=== PATIENT | female | born 1980 | race Caucasian/White ===

== ENCOUNTER 2018-03-20 18:41 | Emergency (ER) | payer MEDICAID ==
[~2018-03-20] VITALS: Ht 167.6 cm; Wt 90.7 kg
[~2018-03-20 18:41] MED LIST: AUGMENTIN 875-1 EACH PO; CIPROFLOXACIN500 M1 PO; FLOMAX PO; FLONASE16 GM; FOLIC ACID PO; HYDROCODON-ACE1 EAC7 PO; KEPPRA 500 MG500 M1 PO; PERCOCET 5-3251 EACH PO; PRENATAL; PRENATAL VIT PO; SERTRALINE HCL50 MG PO; TRAZODONE HCL50 MG PO; VISTARIL 25 MG25 M1 PO; ZOFRAN ODT4 MG PO; ZOFRAN4 MG PO; ZYRTEC10 M2 PO
[2018-03-20] MEDS ORDERED: SEROQUEL 50 MG50 MG PO (18:59)
[2018-03-20] MEDS ORDERED: ACETAMINOPHEN-1 EAC1 PO (20:15)
[2018-03-20 20:24] VITALS: BP 130/70
== END 2018-03-20 20:25 | disposition home or self-care (01) ==
LOC: M.ERS 18:41
DX: S02.2XXA Fracture of nasal bones, initial encounter for closed fracture (principal); W21.07XA Struck by softball, initial encounter; Y93.89 Activity, other specified; Y92.89 Other specified places as the place of occurrence of the external cause; Y99.8 Other external cause status

== ENCOUNTER 2019-06-02 01:08 | Emergency (ER) | payer OTHER ==
[~2019-06-02] VITALS: Ht 167.6 cm; Wt 88.5 kg
[~2019-06-02 01:08] MED LIST changes: +ACETAMINOPHEN-1 EAC1 PO; +SEROQUEL 50 MG50 MG PO
[2019-06-02 01:30] LABS: ABSOLUTE BASOPHILS 0.1 thou/uL (0.0-0.2); ABSOLUTE LYMPHOCYTES 2.2 thou/uL (0.8-5.3); ABSOLUTE MONOCYTES 0.7 thou/uL (0.0-1.2); ABSOLUTE NEUTROPHILS 5.2 thou/uL (1.6-8.1); BASOPHILS 0.6 %; EOSINOPHILS 0.3 %; HEMATOCRIT 40.7 % (37.0-47.0); HEMOGLOBIN 14.3 gm/dL (12.0-15.0); LYMPHOCYTES 27.2 %; MCH 31.5 pg (26.0-34.0); MCHC 35.1 g/dL (28.0-37.0); MCV 89.5 fL (80.0-100.0); MONOCYTES 8.3 %; MPV 10.8 fl. (7.2-11.1); NUCLEATED RBCS 0 /100WBC; PLATELET COUNT* 193 thou/uL (150-400); POLYS 63.6 %; RBC 4.55 mil/uL (4.20-5.00); RDW-CV 13.9 % (10.5-14.5); WBC 8.2 thou/uL (4.0-11.0)
[2019-06-02 01:32] LABS: URINE BILIRUBIN NEGATIVE (Negative); URINE BLOOD TRACE (Negative); URINE CLARITY CLEAR; URINE COLOR YELLOW; URINE GLUCOSE-RANDOM NEGATIVE (Negative); URINE KETONES NEGATIVE (Negative); URINE LEUKOCYTES-REFLEX 1+ (Negative); URINE NITRITE-REFLEX NEGATIVE (Negative); URINE PROTEIN TRACE (Negative); URINE UROBILINOGEN 0.2 E.U./dl (0.2-1.0)
[2019-06-02 01:39] LABS: CALCIUM 9.2 mg/dL (8.5-10.1); CREATININE 0.8 mg/dL (0.6-1.3); POTASSIUM 3.7 mmol/L (3.5-5.1)
[2019-06-02 01:40] LABS: BACTERIA-REFLEX >30 Many /HPF (None Seen); CASTS None Seen /LPF (None Seen); CRYSTALS None Seen /LPF (None Seen); MUCUS 4-6 Moderate strn/LPF (None Seen); SQUAMOUS 4-10 Moderate /LPF (0-3); URINE RBC 3-10 Few /HPF (0-2); URINE WBC-REFLEX 6-15 Few /HPF (0-5)
[2019-06-02 01:44] LABS: TOTAL BILIRUBIN 0.3 mg/dL (<0.1-1.0); TOTAL PROTEIN 7.5 g/dL (6.4-8.2)
[2019-06-02] MEDS ORDERED: HYDROCODON-ACE1 EAC8 PO (02:21)
[2019-06-02] MEDS ORDERED: BACTRIM DS TAB1 EACH PO (02:21)
[2019-06-02] MEDS ORDERED: ZOFRAN ODT4 MG PO (02:22)
[2019-06-02 02:40] VITALS: BP 110/62
== END 2019-06-02 02:42 | disposition home or self-care (01) ==
LOC: M.ERS 01:08
PROVIDERS: Emergency Medicine
DX: N20.0 Calculus of kidney (principal); Z98.51 Tubal ligation status; Z88.5 Allergy status to narcotic agent; Z88.8 Allergy status to other drugs, medicaments and biological substances; Z87.442 Personal history of urinary calculi

== ENCOUNTER 2021-04-03 18:23 | Inpatient (IN) | payer OTHER ==
[~2021-04-03] VITALS: Ht 167.6 cm; Wt 95.7 kg
[~2021-04-03 18:23] MED LIST changes: +BACTRIM DS TAB1 EACH PO; +HYDROCODON-ACE1 EAC8 PO
[2021-04-03 18:35] VITALS: BP 126/69
[2021-04-03] MEDS ORDERED: PROTONIX 20 MG20 MG PO (18:40)
[2021-04-03 18:53] LABS: BE -0.4 mmol/L (-2 to +3); PCO2 33.8 mmHg (35.0-45.0); PO2 95.1 mmHg (75.0-100.0)
[2021-04-03 19:07] LABS: ABSOLUTE LYMPHOCYTES 0.5 thou/uL (0.8-5.3); ABSOLUTE MONOCYTES 0.3 thou/uL (0.0-1.2); ABSOLUTE NEUTROPHILS 3.3 thou/uL (1.6-8.1); BASOPHILS 0.4 %; HEMATOCRIT 38.9 % (37.0-47.0); HEMOGLOBIN 13.1 gm/dL (12.0-15.0); LYMPHOCYTES 13.2 %; MCH 28.7 pg (26.0-34.0); MCHC 33.6 g/dL (28.0-37.0); MCV 85.3 fL (80.0-100.0); MONOCYTES 6.8 %; MPV 9.7 fl. (7.2-11.1); NUCLEATED RBCS 0 /100WBC; PLATELET COUNT* 125 thou/uL (150-400); POLYS 79.6 %; RBC 4.56 mil/uL (4.20-5.00); RDW-CV 15.6 % (10.5-14.5); WBC 4.2 thou/uL (4.0-11.0)
[2021-04-03 19:23] LABS: CALCIUM 8.2 mg/dL (8.5-10.1); CREATININE 0.7 mg/dL (0.6-1.3); POTASSIUM 3.5 mmol/L (3.5-5.1)
[2021-04-03 19:27] LABS: ALBUMIN 3.6 g/dL (3.4-5.0); TOTAL BILIRUBIN 0.6 mg/dL (<0.1-1.0); TOTAL PROTEIN 7.1 g/dL (6.4-8.2)
[2021-04-03] MEDS ORDERED: SEROQUEL 50 MG50 M1 PO (22:34)
[2021-04-03 23:34] VITALS: BP 119/63
[2021-04-04 03:05] VITALS: BP 92/53
[2021-04-04 07:32] VITALS: BP 103/60
[2021-04-04 09:52] LABS: HEMATOCRIT 37.8 % (37.0-47.0); HEMOGLOBIN 12.6 gm/dL (12.0-15.0); MCH 28.6 pg (26.0-34.0); MCHC 33.3 g/dL (28.0-37.0); MCV 85.8 fL (80.0-100.0); MPV 9.7 fl. (7.2-11.1); RBC 4.41 mil/uL (4.20-5.00); RDW-CV 15.5 % (10.5-14.5); WBC 2.8 thou/uL (4.0-11.0)
[2021-04-04 09:59] LABS: CALCIUM 7.8 mg/dL (8.5-10.1); CREATININE 0.7 mg/dL (0.6-1.3); POTASSIUM 3.7 mmol/L (3.5-5.1)
[2021-04-04 12:45] VITALS: BP 106/64
[2021-04-04 18:05] VITALS: BP 120/69
[2021-04-04 22:00] VITALS: BP 115/66
--- NOTE | 2021-04-04 22:24 | NUR ---
PROVIDER PAGED REGARDING PTS HOME MEDS. PT STATES SHE TAKE SEROQUEL AT BEDTIME AND IS NEEDING 150MG INSTEAD OF 50MG.
[2021-04-05] VITALS (7 sets, daily range): BP systolic 102–122; BP diastolic 49–66
[2021-04-05] MEDS ORDERED: CETIRIZINE HCL5 MG PO (02:10)
[2021-04-05] MEDS ORDERED: VITAMIN B-121000 MC2 PO (02:12)
[2021-04-05] MEDS ORDERED: VITAMIN D31250 MC1 PO (02:13)
[2021-04-05] MEDS ORDERED: SUPER THERAVIT1 EACH PO (02:14)
[2021-04-05 04:31] LABS: HEMATOCRIT 34.8 % (37.0-47.0); HEMOGLOBIN 11.7 gm/dL (12.0-15.0); MCH 28.8 pg (26.0-34.0); MCHC 33.7 g/dL (28.0-37.0); MCV 85.5 fL (80.0-100.0); MPV 9.8 fl. (7.2-11.1); RBC 4.07 mil/uL (4.20-5.00); RDW-CV 15.7 % (10.5-14.5); WBC 6.5 thou/uL (4.0-11.0)
[2021-04-05 04:54] LABS: ALBUMIN 3.1 g/dL (3.4-5.0); CALCIUM 8.1 mg/dL (8.5-10.1); CREATININE 0.7 mg/dL (0.6-1.3); MAGNESIUM 2.2 mg/dL (1.8-2.4); POTASSIUM 4.1 mmol/L (3.5-5.1); TOTAL BILIRUBIN 0.3 mg/dL (<0.1-1.0); TOTAL PROTEIN 6.6 g/dL (6.4-8.2)
--- NOTE | 2021-04-05 14:59 | NUR ---
Covid positive. Pt resides at home with . Independent. No DME. No hx of HH or SNF. Per med assist, Pt is over income and does not qualify for [place] [facility]. On 2L, wean prior to dc. Plan fluids today. Anticipate dc tomorrow.
--- NOTE | 2021-04-05 16:30 | NUR ---
PT REMAINED ALERT AND ORIENTED. PT RESTING IN BED. FALL RISK PRECAUTIONS IN PLACE. TITRATING O2 DOWN FROM 4 LITERS TO 3 LITERS. FALL RISK PRECAUTIONS IN PLACE. HOURLY ROUNDING COMPLETED. CALL LIGHT WITHIN REACH. HEART MONITORED.
[2021-04-06 00:10] VITALS: BP 107/58
[2021-04-06 04:23] VITALS: BP 99/56
[2021-04-06 04:58] LABS: HEMATOCRIT 34.3 % (37.0-47.0); HEMOGLOBIN 11.6 gm/dL (12.0-15.0); MCHC 33.9 g/dL (28.0-37.0); MCV 85.5 fL (80.0-100.0); MPV 9.5 fl. (7.2-11.1); RBC 4.01 mil/uL (4.20-5.00); RDW-CV 15.6 % (10.5-14.5); WBC 5.1 thou/uL (4.0-11.0)
[2021-04-06 05:23] LABS: ALBUMIN 3.1 g/dL (3.4-5.0); CALCIUM 8.1 mg/dL (8.5-10.1); CREATININE 0.7 mg/dL (0.6-1.3); MAGNESIUM 2.2 mg/dL (1.8-2.4); POTASSIUM 3.9 mmol/L (3.5-5.1); TOTAL BILIRUBIN 0.3 mg/dL (<0.1-1.0); TOTAL PROTEIN 6.5 g/dL (6.4-8.2)
--- NOTE | 2021-04-06 06:08 | NUR ---
PT IS ABLE TO COMMUNICATE HER NEEDS TO STAFF EFFECTIVELY. CURRENT PAIN MEDICATION REGIMEN HAS BEEN ADEQUATE FOR CONTROLLING HER PAIN UP TO THIS TIME. POSSIBLE DISCHARGE SOON.
[2021-04-06 08:10] VITALS: BP 113/60
[2021-04-06 12:12] VITALS: BP 96/62
[2021-04-06 16:37] VITALS: BP 115/65
[2021-04-06 20:10] VITALS: BP 108/57
[2021-04-07 00:32] VITALS: BP 107/63
[2021-04-07 04:46] VITALS: BP 112/68
[2021-04-07 05:02] LABS: HEMATOCRIT 35.4 % (37.0-47.0); HEMOGLOBIN 11.8 gm/dL (12.0-15.0); MCH 28.7 pg (26.0-34.0); MCHC 33.4 g/dL (28.0-37.0); MCV 85.7 fL (80.0-100.0); MPV 9.4 fl. (7.2-11.1); RBC 4.13 mil/uL (4.20-5.00); RDW-CV 15.8 % (10.5-14.5); WBC 5.6 thou/uL (4.0-11.0)
[2021-04-07 05:22] LABS: ALBUMIN 3.1 g/dL (3.4-5.0); CALCIUM 8.2 mg/dL (8.5-10.1); CREATININE 0.7 mg/dL (0.6-1.3); POTASSIUM 3.9 mmol/L (3.5-5.1); TOTAL BILIRUBIN 0.4 mg/dL (<0.1-1.0); TOTAL PROTEIN 6.6 g/dL (6.4-8.2)
--- NOTE | 2021-04-07 05:25 | NUR ---
PT RESTED COMFORTABLY ALL SHIFT. 1L-NC 94%, UP AD VERENICE, NO WORSENING OF CONDITION. WAS SINUS RHYTHM ON MONITOR ALL SHIFT. RECEIVED ALL MEDS AND FLUIDS SCHEDULED. WILL CONTINUE TO MONITOR.
[2021-04-07] MEDS ORDERED: VENTOLIN HFA 1818 GM INH (08:57)
[2021-04-07] MEDS ORDERED: DEXAMETHASONE 22 M1 PO (08:57)
[2021-04-07 09:09] VITALS: BP 108/62
[2021-04-07 12:00] VITALS: BP 107/62
[2021-04-07 12:00] LABS: URINE BILIRUBIN NEGATIVE (Negative); URINE BLOOD 3+ (Negative); URINE CLARITY CLEAR; URINE COLOR YELLOW; URINE GLUCOSE-RANDOM NEGATIVE (Negative); URINE KETONES NEGATIVE (Negative); URINE LEUKOCYTES-REFLEX NEGATIVE (Negative); URINE NITRITE-REFLEX NEGATIVE (Negative); URINE PROTEIN NEGATIVE (Negative); URINE UROBILINOGEN 0.2 E.U./dl (0.2-1.0)
[2021-04-07 12:06] LABS: BACTERIA-REFLEX 1-9 Few /HPF (None Seen); CASTS None Seen /LPF (None Seen); MUCUS None Seen strn/LPF (None Seen); SQUAMOUS 0-3 Few /LPF (0-3); URINE RBC 0-2 Rare /HPF (0-2); URINE WBC-REFLEX None Seen /HPF (0-5)
[2021-04-07 12:07] LABS: CRYSTALS None Seen /LPF (None Seen)
[2021-04-07 12:21] VITALS: BP 107/62
--- NOTE | 2021-04-07 13:55 | NUR ---
Reviewed discharge teaching with patient; verbalized understanding. Dc'd IV and court monitor. Discharged from unit per WC.
== END 2021-04-07 13:55 | disposition home or self-care (01) | DRG 177 ==
LOC: M.ERS 18:23 → M.TBA-ER 19:50 → M.ORTHSURG 04-05 02:08
PROVIDERS: Emergency Medicine; Internal Medicine; ADMIT Internal Medicine; ATTEND Internal Medicine
PROC: XW033E5 Introduction of Remdesivir Anti-infective into Peripheral Vein, Percutaneous Approach, New Technology Group 5 (ICD-10-PCS; principal; 2021-04-04)
DX: U07.1 COVID-19 (principal); J12.82 Pneumonia due to coronavirus disease 2019; J96.01 Acute respiratory failure with hypoxia; Z79.899 Other long term (current) drug therapy; Z88.5 Allergy status to narcotic agent; Z88.8 Allergy status to other drugs, medicaments and biological substances; Z72.89 Other problems related to lifestyle